=== PATIENT | female | born 1955 ===

== ENCOUNTER → 2022-07-16 13:17 | Outpatient (BNVA) | payer OTHER, SELFPAY | PROVIDERS: Visit Provider Nurse Practitioner Family | DX: Z13.89 Encounter for screening for other disorder (principal) ==

== ENCOUNTER → 2022-08-21 13:04 | Outpatient (BNVA) | payer OTHER, SELFPAY | PROVIDERS: Visit Provider Surgery Vascular Surgery ==

== ENCOUNTER 2022-10-03 12:26 | Outpatient (REF) | payer OTHER, SELFPAY ==
--- NOTE | ~2022-10-03 | US_ITS ---
EXAMINATION: US LOWER EXTREMITY VENOUS (REFLUX EXAM), BILATERAL CLINICAL INDICATION: Varicose veins COMPARISON: None. TECHNIQUE: Color flow triplex imaging and compression Doppler was performed to evaluate both the deep and the superficial systems bilaterally. To evaluate the superficial system, the examination was performed in the upright position. Color-flow Doppler ultrasound and compression ultrasound were utilized. In addition, maneuvers were utilized to demonstrate reflux. FINDINGS: 1. DEEP VENOUS ULTRASOUND OF THE RIGHT LOWER EXTREMITY: Common Femoral Vein: Compressible, normal respiratory variation and augmented flow. Femoral Vein: Compressible, normal color flow and augmentation. Popliteal Vein: Compressible, normal augmentation. Deep Reflux: There is no evidence of reflux in the deep system in either the common femoral vein or the popliteal vein. There is no evidence of a Gómez's cyst. 2. SUPERFICIAL ULTRASOUND WITH DOPPLER OF RIGHT LOWER EXTREMITY: GREAT SAPHENOUS VEIN: Saphenofemoral Junction: 0.8 cm; Reflux: 0 ms Proximal Thigh: 0.5 cm; Reflux: 0 ms Mid Thigh: 0.4 cm; Reflux: 0 ms Above Knee: 0.4 cm; Reflux: 0 ms At Knee: 0.3 cm; Reflux: 0 ms Below Knee: 0.2 cm; Reflux: 0 ms Mid Calf: 0.3 cm; Reflux: 0 ms Ankle: 0.2 cm; Reflux: 0 ms DUPLICATED MEDIAL GREAT SAPHENOUS VEIN: Diameter: None imaged Reflux: NA DUPLICATED LATERAL GREAT SAPHENOUS VEIN: Proximal: 0.2 cm; Reflux: 0 ms Distal: 0.2 cm; Reflux: 0 ms SMALL SAPHENOUS VEIN: Proximal: 0.2 cm; Reflux: 0 ms Distal: 0.2 cm; Reflux: 0 ms VEIN OF GIACOMINI: Size: NA Reflux: NA PERFORATORS: Location: Distal thigh Size: 0.2 cm Reflux: NA VARICOSITIES: Location: None imaged Size: NA Reflux: NA 3. DEEP VENOUS ULTRASOUND OF THE LEFT LOWER EXTREMITY: Common Femoral Vein: Compressible, normal respiratory variation and augmented flow. Femoral Vein: Compressible, normal color flow and augmentation. Popliteal Vein: Compressible, normal augmentation. Deep Reflux: There is no evidence of reflux in the deep system in either the common femoral vein or the popliteal vein. There is no evidence of a Gómez's cyst. 4. SUPERFICIAL ULTRASOUND WITH DOPPLER OF LEFT LOWER EXTREMITY: GREAT SAPHENOUS VEIN: Saphenofemoral Junction: 0.6 cm; Reflux: 0 ms Proximal Thigh: 0.5 cm; Reflux: 0 ms Mid Thigh: 0.4 cm; Reflux: 0 ms Above Knee: 0.4 cm; Reflux: 0 ms At Knee: 0.4 cm; Reflux: 0 ms Below Knee: 0.2 cm; Reflux: 0 ms Mid Calf: 0.2 cm; Reflux: 0 ms Ankle: 0.2 cm; Reflux: 0 ms DUPLICATED MEDIAL GREAT SAPHENOUS VEIN: Diameter: None imaged Reflux: NA DUPLICATED LATERAL GREAT SAPHENOUS VEIN: Proximal: 0.5 cm; Reflux: 0 ms Distal: 0.3 cm; Reflux: 0 ms SMALL SAPHENOUS VEIN: Proximal: 0.3 cm; Reflux: 0 ms Distal: 0.4 cm; Reflux: 0 ms VEIN OF GIACOMINI: Size: NA Reflux: NA PERFORATORS: Location: Mid thigh Size: 0.2 cm Reflux: NA Location: Midcalf Size: 0.3 cm Reflux: NA Location: [place] Size: 0.2 cm Reflux: NA VARICOSITIES: Location: None Imaged Size: NA Reflux: NA US/US venous duplex LE BI IMPRESSION: 1. No evidence of DVT or deep venous reflux. 2. The saphenous systems are competent bilaterally.
== END 2022-10-03 12:27 | disposition home or self-care (01) ==
LOC: HO.US 12:26
PROVIDERS: Visit Provider Surgery Vascular Surgery
DX: I83.11 Varicose veins of right lower extremity with inflammation (principal)
CPT/HCPCS: 93970

== ENCOUNTER → 2022-10-11 13:20 | Outpatient (BNVA) | payer OTHER, SELFPAY | PROVIDERS: Visit Provider Surgery Vascular Surgery | DX: M79.604 Pain in right leg (principal); M79.89 Other specified soft tissue disorders | CPT/HCPCS: 99212 ==

== ENCOUNTER 2023-01-15 14:45 | Outpatient (AMB) | payer OTHER, SELFPAY ==
--- NOTE | 2023-01-15 14:55 | MHC.OFFVIS ---
Intake Vital Signs 01/15/23 14:56 Height 5 ft 7 in BMI Reason not done Patient refused/unable Pulse 98 Pulse Source Pulse Oximeter Pulse Oximetry (%) 98 Oxygen Delivery Method Room Air Intake Visit Reasons: WC-F/U Low back pain-Confirmed Intake Note: Patient presents for follow up back pain. Patient states honestly don't know what the follow up was for? I wanted to cancel but was told that I needed to come In, not sure anyone can help me with my issues. Allergies painkillers Adverse Reaction (Mild, Uncoded 01/15/23 14:59) Gastrointestinal Upset Medication List - Last Reconciled 01/15/23 by GRACE Real glucosamine-chondroitin 250-200 mg (Osteo Bi-Flex) 2 tabs PO TID ibuprofen 200 mg PO Q6H PRN multivitamin 1 tab PO DAILY HPI HPI Comments History of Present Illness Details 67-yr-old female presents for f/u visit. She continues to report RLE- diffuse swelling, skin sensitivity (cannot tolerate sheets or clothes touching her skin), purplish skin discolorations, numbness, and pain. Pt did not tolerate Amitriptyline 10mg qhs- caused N/V x's 6 days. She has also been noticing left plantar region heel pain of unknown origin. She did have vascular consult- Dr Caro did not feel that pt has a vascular etiology for her RLE s/s. She did [place] [facility] [place]- was not sure how she could travel there- she states she cannot drive that distance. [facility], [facility] Medical History Contusion of right knee Depression Legally blind in left eye, as defined in [place] Right ankle sprain Traumatic hematoma of right knee Family History Father Lung cancer Mother Diabetes Sister Multiple sclerosis Social History Alcohol intake: current Alcohol intake frequency: a few times a month Patient Tobacco Use Status: Never used Tobacco Review of Systems Const All systems reviewed & are unremarkable except as noted in HPI and below Physical Exam Vital Signs: Last Vital Signs Pulse 98 01/15/23 14:56 Pulse Ox 98 01/15/23 14:56 Oxygen Delivery Method Room Air 01/15/23 14:56 Const General: cooperative and no acute distress Orientation/consciousness: patient oriented x3 HEENT Head: Yes normocephalic Resp Effort & Inspection: normal respiratory effort and able to speak in complete sentences Neuro Other: Pt cannot sit through entire visit- needs to alternate between sitting and standing. RLE swelling. General: patient oriented x3 and CN's II-XI intact bilaterally Cognition (Neuro): normal cognition Motor exam (neuro): 5/5 motor strength present throughout Extrem Other: Left plantar heel pain- focal tenderness to palpation Psych Appearance: grossly normal Mental Status: mental status grossly normal Speech and movement: Clear speech present Affect: Sad affect present Attitude: cooperative Thought process: Normal thought process present Thought content: Normal thought content present Assessment & Plan Assessment & Plan (1) Pain and swelling of right lower extremity: Code(s): M79.604 - Pain in right leg; M79.89 - Other specified soft tissue disorders (2) Paresthesia of right lower extremity: Code(s): R20.2 - Paresthesia of skin (3) Complex regional pain syndrome of right lower extremity: Code(s): G90.521 - Complex regional pain syndrome I of right lower limb Plan Encouraged pt to reach out [place] [facility] [place] app[place]- likely some visits could be done remotely. In the meantime, will request a more local pain medicine consult. Pt did not tolerate Amitriptyline, Gabapentin, and Duloxetine. Previously had a nerve block w/o effect. f/u in 3 months or sooner prn. Will check left foot XR- note not r/t to work comp. Orders: Orders XR foot LT min 3V 01/15/23 M79.672 - Pain in left foot Referrals Pain Management Referral G90.521 - Complex regional pain syndrome I of right lower limb, M79.604 - Pain in right leg, M79.89 - Other specified soft tissue disorders, R20.2 - Paresthesia of skin Coding Level of Care Code Est Pt Level 4 (34406) Diagnoses Pain and swelling of right lower extremity M79.604; M79.89 Paresthesia of right lower extremity R20.2 Complex regional pain syndrome of right lower extremity G90.521
[2023-01-15 14:56] VITALS: PULSE 98; O2SAT 98
== END 2023-01-15 15:59 | disposition home or self-care (01) ==
PROVIDERS: Visit Provider Nurse Practitioner Family
DX: M79.604 Pain in right leg (principal); M79.89 Other specified soft tissue disorders; R20.2 Paresthesia of skin; G90.521 Complex regional pain syndrome I of right lower limb
CPT/HCPCS: 99214

== ENCOUNTER → 2023-01-15 14:45 | Outpatient (BNVA) | payer OTHER, SELFPAY | PROVIDERS: Visit Provider Nurse Practitioner Family ==